=== PATIENT | male | born 1990 | race Caucasian/White ===

== ENCOUNTER 2024-05-13 05:48 | Day surgery (SDC) | payer OTHER ==
[2024-05-12 10:30] VITALS: BP 154/92
[~2024-05-13] VITALS: Ht 170.2 cm; Wt 86.4 kg
[~2024-05-13 05:48] MED LIST: LACTATED RINGER'S 1,000 ML IV SCH
[2024-05-13 05:58] VITALS: BP 147/89
[2024-05-13] MEDS ORDERED: ONDANSETRON ODT8 MG PO (05:59)
[2024-05-13] MEDS ORDERED: DIAZEPAM5 MG PO (06:00)
[2024-05-13] MEDS ORDERED: SODIUM CHLORIDE 0.9% 20 ML IV ONE (06:51)
[2024-05-13] MEDS ORDERED: dexmedeTOMIDine HCl 200 MCG/2 ML VIAL ONE (06:51)
[2024-05-13] MEDS ORDERED: IBLOOD GLUCOSE TEST STRIP 1 EA TEST VI PRN (07:00)
[2024-05-13] MEDS ORDERED: LIDOCAINE HCL 1% 5 ML SDV INJ ONE (07:00)
--- NOTE | 2024-05-13 08:00 | NUR ---
VISITED DURING SPIRITUAL CARE ROUNDS. PT APPEARED TO BE SLEEPING. DID NOT DISTURB. PROVIDED PRAYER.
[2024-05-13] MEDS ORDERED: LIDOCAINE HCL 2% 5 ML SDV ONE (08:47)
[2024-05-13] MEDS ORDERED: KETAMINE in NS 50 MG/5 ML SYR ONE (08:47)
[2024-05-13] MEDS ORDERED: propofoL 200 MG/20 ML VIAL ONE ×3 (08:47→09:07)
[2024-05-13] MEDS ORDERED: LACTATED RINGER'S 1,000 ML IV ONE (09:13)
--- NOTE | 2024-05-13 09:34 | NUR ---
05/13/24 0934 Almaz Arrieta PATIENT ARRIVES IN PACU COUGHING. HOB IS ELEVATED. PATIENT REPORTS "I'M NOT OKAY." PATIENT IS REASSURED. PATIENT IS REPORTING ABDOMINAL PAIN. HE DENIES BEING ABLE TO PASS GAS.
[2024-05-13 10:02] VITALS: BP 135/93
--- NOTE | 2024-05-13 10:15 | EKG ---
[facility] [address] [facility] [place] [address] Signed Normal sinus rhythm Moderate voltage criteria for LVH, may be normal variant Borderline ECG No previous ECGs available Confirmed by Jean Claude Vázquez MD () on 05/13/2024 10:15:35 AM Electronically Signed By: JEAN CLAUDE VÁZQUEZ MD 05/13/24 1015 PATIENT NAME: RYAN DAVIS Electrocardiogram DATE OF : [birth year] PHYSICIAN: JEAN CLAUDE VÁZQUEZ MD REPORT #: [id number] REPORT IS CONFIDENTIAL AND NOT TO BE RELEASED WITHOUT AUTHORIZATION
--- NOTE | 2024-05-14 11:05 | OR ---
[facility] [address] [place], [place] [address] Signed DATE OF OPERATION: 05/13/2024 SURGEON: Darian Cooper MD PREOPERATIVE DIAGNOSES: 1. Persistent upper abdominal pain. 2. Distant history of peptic disease. 3. Persistent watery diarrhea. 4. Severe ongoing substance abuse disorder. POSTOPERATIVE DIAGNOSES: 1. Mild diffuse gastritis without ulceration, duodenitis. 2. Mild transverse colon inflammation (edema) without ulceration. PROCEDURES: 1. Esophagogastroduodenoscopy with biopsy. 2. Total colonoscopy to cecum with multiple biopsies. ANESTHESIA: Intravenous sedation; propofol infusion (addition of Precedex, ketamine), Perlita Mcfarland CRNA. INDICATION: This 33-year-old white man is a patient of of [place], [place]. He is essentially self-referred for consideration of persistent watery diarrhea. The patient has a complex past medical history of substance abuse disorder including opiate medication ultimately treated with Suboxone and subsequently said to have been detoxified from Suboxone at a rehab facility in [place]. He additionally has severe ongoing and chronic alcoholism and chronic alcohol dependency. He is managed in an outpatient setting by with oral Valium which he variably takes as it does cause him some aggressive tendencies he says. He is currently still episodically drinking alcohol, though his history is unfortunately somewhat unreliable. 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 As regards to his diarrhea, he has had some episodes of blood associated with that. He has several bowel movements a day, all of them watery and non-formed. He says he was treated in [place] with "antibiotics" for this problem, though he does not recall any endoscopic or colonoscopic evaluations previously. He also said he was treated for "stomach pain" with unknown medication also in the rehab center that has persisted upper Electronically Signed By: DARIAN COOPER MD 05/14/24 1105 PATIENT NAME: RYAN DAVIS OPERATIVE REPORT DATE OF : [birth year] REPORT #: [id number] PHYSICIAN: DARIAN COOPER MD PCP: RENÉE PAK MD REPORT IS CONFIDENTIAL AND NOT TO BE RELEASED WITHOUT AUTHORIZATION [facility] [address] [place], [place] [address] Signed abdominal pain. He is well known to me to have a family history of biliary disease including his mother and both grandparents. Lab studies have been ordered including a CBC and Chem profile, which was normal and a celiac disease was anticipated, uncertain if completed. I have recommended colonoscopy to assess for possible inflammatory bowel disease based on his age and symptoms as well as concurrent upper endoscopy based on presumed peptic disease from the past. The risk of bleeding, infection, perforation, and so forth related to upper endoscopy and colonoscopy were reviewed with him. He understands and wished to proceed. FINDINGS: Upper endoscopy showed some distal esophagitis, but no sign of ulceration, neoplasm, or Eagle's epithelium. The stomach had mild diffuse gastritis as did the duodenum. CLOtest was negative 15 minutes post procedure. Subsequent evaluation continued to show no evidence of H pylori. Colonoscopy did show a good bowel prep. Complete colonoscopy was undertaken of the cecum. There were edematous changes throughout the colon and signs of mild colitis of the transverse colon. There is no clear evidence of ulcerations, certainly no polyps, diverticular formation, severe colitis, or cancer. DESCRIPTION OF PROCEDURE: The patient was brought to the surgical endoscopy suite and placed in the lateral decubitus position and underwent topical Hurricaine hypopharyngeal anesthesia with lidocaine. He was given a combination of Precedex, ketamine and propofol for sedation. A bite block was placed. An Olympus video upper endoscope was passed in the hypopharynx. The vocal cords were normal. Scope was advanced to the esophagus and the proximal and mid portions were entirely normal. Distal portion did show signs of chronic inflammatory changes. No sign of stricture, neoplasm, or Eagle's epithelium. The scope was passed to the stomach, which was insufflated with air. The mucosa was somewhat edematous but certainly not ulcerated and there was no blood. The rugal folds were reasonably normal. Antrum was normal as was the pylorus. The scope was passed through into the duodenum. Duodenal edema was noted, but there was no sign of ulceration. Biopsies were obtained to assess for celiac disease. The scope was withdrawn and biopsy was then taken of the antrum and more proximal stomach for both KATT and pathologic testing. Retroflexed view was undertaken showing a flap valve that was mostly intact. The scope was straightened, withdrawn and biopsy was then taken of the distal esophagus. Careful withdrawal of the scope showed no other findings of note. Plans were then made for colonoscopy. Additional sedation was administered. Digital rectal examination was performed, which was normal. An Olympus video colonoscope was passed in the rectum and manipulated throughout the colon ultimately intubating the Electronically Signed By: DARIAN COOPER MD 05/14/24 1105 PATIENT NAME: RYAN DAVIS OPERATIVE REPORT DATE OF : [birth year] REPORT #: [id number] PHYSICIAN: DARIAN COOPER MD PCP: RENÉE PAK MD REPORT IS CONFIDENTIAL AND NOT TO BE RELEASED WITHOUT AUTHORIZATION [facility] [address] [place], [place] [address] Signed cecum itself. Throughout the colon, edema was noted as manifested by diffuse and poorly visible submucosal blood vessels. The cecum and right colon appeared to be spared in that regard, though not entirely normal. Biopsies were taken of the cecum, right colon, transverse colon at the hepatic flexure, transverse colon elsewhere, splenic flexure, left colon, sigmoid and rectum. There was no distinct stricture. Certainly, no diverticula, no polyps or other abnormality otherwise. In total, mild diffuse colitis would be considered likely. Pathology is pending. He was taken to the recovery room in good condition having suffered no complication. CONCLUDING DIAGNOSES: 1. Diffuse gastritis and duodenitis, possibly alcohol ingestion related. No evidence of H pylori, ulceration, or neoplasm. 2. Mild colitis dominantly in transverse and splenic flexure regions of uncertain etiology. PLAN: Before empiric treatment with antibiotic, we will obtain stool studies to include enteric pathogens, white cell, Giardia and C difficile given his prior antibiotic administration. The patient would not be a candidate for empiric treatment for his diarrhea with Flagyl given his ongoing alcohol use. He will return to see me in approximately 2 to 3 weeks and we will evaluate his studies as well. A celiac disease panel has been been obtained and I do not have that result with me. However, biopsies of the duodenum may be instructive in that regard. MD UTE Aleman/JACE /[id number] cc: Electronically Signed By: DARIAN COOPER MD 05/14/24 1105 PATIENT NAME: RYAN DAVIS OPERATIVE REPORT DATE OF : [birth year] REPORT #: [id number] PHYSICIAN: DARIAN COOPER MD PCP: RENÉE PAK MD REPORT IS CONFIDENTIAL AND NOT TO BE RELEASED WITHOUT AUTHORIZATION [address] [place], [place] [address] Signed Copies: ~ Electronically Signed By: DARIAN COOPER MD 05/14/24 1105 PATIENT NAME: RYAN DAVIS OPERATIVE REPORT DATE OF : [birth year] REPORT #: [id number] PHYSICIAN: DARIAN COOPER MD PCP: RENÉE PAK MD REPORT IS CONFIDENTIAL AND NOT TO BE RELEASED WITHOUT AUTHORIZATION
--- NOTE | 2024-05-21 11:01 | PATH ---
[facility] [address] [facility] [place], [place] [address] Signed SPECIMEN(S): A DUODENAL BIOPSY SPECIMEN(S): B ANTRUM BIOPSY SPECIMEN(S): C LOWER ESOPHAGEAL BIOPSY SPECIMEN(S): D CECUM BIOPSY SPECIMEN(S): E HEPATIC FLEXURE BIOPSY SPECIMEN(S): F TRANSVERSE BIOPSY SPECIMEN(S): G SPLENIC FLEXURE BIOPSY SPECIMEN(S): H DESCENDING BIOPSY SPECIMEN(S): I SIGMOID BIOPSY SPECIMEN(S): J RECTUM BIOPSY SPECIMEN SOURCE: A. DUODENAL BIOPSY B. ANTRUM BIOPSY C. LOWER ESOPHAGEAL BIOPSY D. CECUM BIOPSY E. HEPATIC FLEXURE BIOPSY F. TRANSVERSE BIOPSY G. SPLENIC FLEXURE BIOPSY H. DESCENDING BIOPSY I. SIGMOID BIOPSY J. RECTUM BIOPSY CLINICAL HISTORY: Chronic diarrhea, gastritis, esophagitis, mild colitis FINAL PATHOLOGIC DIAGNOSIS: A. Duodenum, biopsy: - No significant histopathology. B. Stomach, antrum, biopsy: - No significant histopathologic alterations. C. Esophagus, lower, biopsy: - Portions of unremarkable squamous mucosa. D. Colon, cecum, biopsy: - Focal active colitis. E. Colon, hepatic flexure, biopsy: - No significant histopathology. F. Colon, transverse, biopsy: - No significant histopathology. G. Colon, splenic flexure, biopsy: - No significant histopathology. PATIENT NAME: RYAN DAVIS PATHOLOGY DATE OF : [birth year] REPORT #: [id number] PHYSICIAN: YADIRA ALEX PCP: RENÉE PAK MD REPORT IS CONFIDENTIAL AND NOT TO BE RELEASED WITHOUT AUTHORIZATION [facility] [address] [place], [place] [address] Signed H. Colon, descending, biopsy: - No significant histopathology. I. Colon, sigmoid, biopsy: - No significant histopathology. J. Rectum, biopsy: - No significant histopathologic alterations. COMMENT: A. The sections from the duodenal biopsy show portions of duodenal mucosa with long fingerlike villi. There is no villous atrophy, crypt hyperplasia or intraepithelial lymphocytosis making a diagnosis of celiac disease unlikely. There is no evidence of peptic duodenitis, microorganisms, abnormal infiltrates or neoplasia. B. The sections through the gastric biopsies show fragments of histologically unremarkable antral mucosa. There is no evidence of acute or chronic inflammation. There is no evidence of H. pylori, intestinal metaplasia, abnormal infiltrates or neoplasia. C. The biopsy shows normal appearing squamous epithelium. There is no evidence of acute or chronic inflammation. No glandular mucosa is present. D. The biopsies from the colon show the presence of a focal active colitis. The differential diagnosis of focal active colitis includes bowel preparation effect, trauma/prolapse, infection, drug or ischemic injury, IBD, areas near diverticula or stasis. E, F, G, H, I. The sections from the specimen contain architecturally normal colonic mucosa without crypt distortion. There is no acute or chronic inflammation. There is no evidence of microscopic colitis. There are no abnormal organisms or infiltrates. There are no polyps or neoplasms. J. The sections from the specimen are architecturally normal without crypt distortion. There is no acute or chronic inflammation. There is no evidence of microscopic colitis. There are no abnormal organisms or infiltrates. There is no evidence of polyps or neoplasia. TWK MICROSCOPIC EXAMINATION: Histologic sections of all submitted blocks are examined by light microscopy. These findings, together with the gross examination, support the pathologic diagnosis. GROSS DESCRIPTION: A. The specimen, labeled and designated "Yari, duodenum biopsy," is received PATIENT NAME: RYAN DAVIS PATHOLOGY DATE OF : [birth year] REPORT #: [id number] PHYSICIAN: YADIRA ALEX PCP: RENÉE PAK MD REPORT IS CONFIDENTIAL AND NOT TO BE RELEASED WITHOUT AUTHORIZATION [facility] [address] [place], [place] [address] Signed in formalin and consists of two barton soft tissue fragments, ranging from 0.1 cm. Entirely submitted in (A1). B. The specimen, labeled and designated "Yari, antrum biopsy," is received in formalin and consists of one barton soft tissue fragment, 0.2 cm. Entirely submitted in (B1). C. The specimen, labeled and designated "Yari, lower esophagus biopsy," is received in formalin and consists of two barton soft tissue fragments, ranging from 0.1 cm. Entirely submitted in (C1). D. The specimen, labeled and designated "Yari, cecum biopsy," is received in formalin and consists of three barton soft tissue fragments, ranging from 0.1 to 0.2 cm. Entirely submitted in (D1). E. The specimen, labeled and designated "Yari, hepatic flexure biopsy," is received in formalin and consists of three barton soft tissue fragments, ranging from 0.2 cm. Entirely submitted in (E1). F. The specimen, labeled and designated "Yari, transverse colon biopsy," is received in formalin and consists of four barton soft tissue fragments, ranging from 0.1-0.2 cm. Entirely submitted in (F1). G. The specimen, labeled and designated "Yari, splenic flexure biopsy," is received in formalin and consists of three barton soft tissue fragments, ranging from 0.2 cm. Entirely submitted in (G1). H. The specimen, labeled and designated "Yari, descending colon biopsy," is received in formalin and consists of four barton soft tissue fragments, ranging from 0.2 cm. Entirely submitted in (H1). I. The specimen, labeled and designated "Yari, sigmoid colon biopsy," is received in formalin and consists of two barton soft tissue fragments, ranging from 0.2 to 0.3 cm. Entirely submitted in (I1). J. The specimen, labeled and designated "Yari, rectum biopsy," is received in formalin and consists of three barton soft tissue fragments, ranging from 0.1-0.2 cm. Entirely submitted in (J1). JS (under the direct supervision of a pathologist) The Gross Description was prepared using a voice recognition system. The report was reviewed for accuracy; however, sound-alike word errors, addition and/or deletions may occur. If there is any question about this report, please contact Client Services. ADDITIONAL NOTES: Immunohistochemical and/or in situ hybridization studies if performed in this case included appropriate positive controls that reacted as expected. This test was developed and its performance characteristics determined by [facility]. It has not been cleared or PATIENT NAME: RYAN DAVIS PATHOLOGY DATE OF : [birth year] REPORT #: [id number] PHYSICIAN: YADIRA ALEX PCP: RENÉE PAK MD REPORT IS CONFIDENTIAL AND NOT TO BE RELEASED WITHOUT AUTHORIZATION [address], [place] [address] Signed approved by the U.S. Food and Drug Administration. The FDA has determined that such clearance or approval is not necessary. This test is used for clinical purposes. It should not be regarded as investigational or for research. [facility] is certified under the Clinical Laboratory Improvement Amendments of 1988 (CLIA) as qualified to perform high complexity clinical laboratory testing. PERFORMING LABORATORY: Technical component was performed by [facility], [address] [place] [id number] (CLIA# [id number]). Professional interpretation [facility] by [facility], [address] [place] [id number] (CLIA#:[id number]). Diagnostician: Dariel Barrera MD Pathologist Electronically Signed 05/21/2024 Copies: ~ PATIENT NAME: RYAN DAVIS PATHOLOGY DATE OF : [birth year] REPORT #: [id number] PHYSICIAN: YADIRA ALEX PCP: RENÉE PAK MD REPORT IS CONFIDENTIAL AND NOT TO BE RELEASED WITHOUT AUTHORIZATION
== END 2024-05-13 10:07 | disposition home or self-care (01) ==
LOC: OPS 05:48 → DS 05:48 → OPS 07:30 → DS 13:00 → OPS 13:00
PROVIDERS: ATTEND Surgery
PROC: 0DBH8ZX Excision of Cecum, Via Natural or Artificial Opening Endoscopic, Diagnostic (ICD-10-PCS; 2024-05-13)
PROC: 0DBL8ZX Excision of Transverse Colon, Via Natural or Artificial Opening Endoscopic, Diagnostic (ICD-10-PCS; 2024-05-13)
PROC: 0DBN8ZX Excision of Sigmoid Colon, Via Natural or Artificial Opening Endoscopic, Diagnostic (ICD-10-PCS; 2024-05-13)
PROC: 0DBP8ZX Excision of Rectum, Via Natural or Artificial Opening Endoscopic, Diagnostic (ICD-10-PCS; 2024-05-13)
PROC: 0DBF8ZX Excision of Right Large Intestine, Via Natural or Artificial Opening Endoscopic, Diagnostic (ICD-10-PCS; 2024-05-13)
PROC: 0DBG8ZX Excision of Left Large Intestine, Via Natural or Artificial Opening Endoscopic, Diagnostic (ICD-10-PCS; 2024-05-13)
PROC: 0DB98ZX Excision of Duodenum, Via Natural or Artificial Opening Endoscopic, Diagnostic (ICD-10-PCS; principal; 2024-05-13 07:30)
PROC: 0DB68ZX Excision of Stomach, Via Natural or Artificial Opening Endoscopic, Diagnostic (ICD-10-PCS; 2024-05-13 07:30)
DX: K29.70 Gastritis, unspecified, without bleeding (principal); K29.80 Duodenitis without bleeding; K52.9 Noninfective gastroenteritis and colitis, unspecified
CPT/HCPCS: 00813; 93005; 93010; J2001; J2704; J3490; J7121